=== PATIENT | male | born 1970 | race Caucasian/White ===

== ENCOUNTER 2020-07-23 12:29 | Outpatient (CLI) | payer MEDICAID, SELFPAY ==
--- NOTE | 2020-07-23 13:18 | MR_ITS ---
WS: [id number] MRI HEAD WITH CONTRAST TECHNIQUE: Sagittal T1, T2 axial, T2 axial FLAIR, axial susceptibility weighted imaging, axial diffus ion weighted images, and coronal T2 images were obtained. Pre and post-T1 axial and post T1 coronal i mages. ADC and FSPGR images. CLINICAL INFORMATION: TRANSIENT UNCONSCIOUSNESS COMPARISON: MRI 5 ,017 and 10 FINDINGS: No evidence of restricted diffusion to suggest acute ischemia. Ventricular system and basal cisterns are patent. Minimal small vessel changes. Moderate parenchymal volume loss. Chronic lacunar infarcts in the bilateral basal ganglia. Multiple chronic lacunar infarcts in the cerebellum bilaterally. [employer] eloise infarct right parasagittal occipital lobe with encephalomalacia and gliosis. Normal vascular flow voids at the skull base. No extra-axial fluid collections. No evidence of mass or mass effect. Paran miguel sinuses and mastoid air cells well aerated. No hemosiderin on susceptibly weighted images. No abnormal gadolinium enhancement. Normal optic chias m and pituitary infundibulum. Normal cavernous sinuses and Meckel's cave. Mild symmetric atrophy invo lving the temporal lobes and hippocampal formations. Mild fullness in the sella appears unchanged sin ce 2010. Recommend correlation with pituitary function studies. MR/MR head wo/w con [id number] IMPRESSION: 1. No evidence of restricted diffusion to suggest acute ischemia. 2. Mild small vessel changes with moderate parenchymal volume loss. 3. Chronic lacunar infarcts in bilateral basal ganglia and bilateral cerebellu m. 4. Chronic infarct in the right parasagittal occipital lobe with encephalomala beronica and gliosis is unchanged. 5. No abnormal intracranial enhancement. 6. Mild fullness in the sella appears stable over multiple multiple prior stud ies dating back to 2010. Recommend correlation with pituitary function studies. 7. Interval resection of the previously described left postauricular sebaceous cyst.
== END 2020-07-23 12:30 | disposition home or self-care (01) ==
LOC: RADSHAW 12:30
PROVIDERS: PCP Family Medicine; Visit Provider Family Medicine
DX: R55 Syncope and collapse (principal); I63.81 Other cerebral infarction due to occlusion or stenosis of small artery
CPT/HCPCS: 70553; A9579

== ENCOUNTER → 2020-10-21 13:47 | Outpatient (BNVA) | payer MEDICAID, SELFPAY | PROVIDERS: PCP Family Medicine; Visit Provider Specialist | DX: R56.9 Unspecified convulsions (principal); Z86.73 Personal history of transient ischemic attack (TIA), and cerebral infarction without residual deficits; F17.210 Nicotine dependence, cigarettes, uncomplicated | CPT/HCPCS: 99214; 99215 ==

== ENCOUNTER 2023-05-02 20:29 | Emergency (ER) | payer MEDICAID, SELFPAY ==
[2023-05-02 20:38] VITALS: BP 133/83; PULSE 75; RESP 14; TEMP 36.7; O2SAT 94; BMI 31.1
[2023-05-02 20:58] VITALS: BP 132/75; PULSE 64; RESP 18; O2SAT 92
[2023-05-02] MEDS: tetracaine 0.5% Op Soln 4 mL Btl 1 DROP EYE-LEFT (21:05)
[2023-05-02] MEDS: fluorescein 1 mg Strip EYE-LEFT (21:05)
--- NOTE | 2023-05-02 21:05 | ED_ITS ---
HPI - Eye Problem General: Chief complaint: Eye Problems Stated complaint: Pain In Eye Time Seen by Provider: 05/02/23 20:49 Source: patient Mode of arrival: ambulatory Limitations: no limitations History of Present Illness: 52-year-old male has had a history of stroke in the past. Has been complaining of left eye pain along with left-sided headache over the last 2 days. He denies any change in vision he does not wear contacts. Denies any known foreign bodies in the eye states that pain is a pressure type pain he rates it a 4 out of 10 denies any worsening proving factors. Associated symptoms: Reports headache(s); Denies fever(s), nausea, neck pain or vomiting Review of Systems Const: Denies: fever(s) or chills Eyes: Reports: eye discomfort; Denies: blurry vision ENMT: Denies: throat pain or dental pain Card: Denies: chest pain Resp: Denies: dyspnea GI: Denies: abdominal pain, nausea, vomiting or diarrhea Musc: Denies: neck pain or back pain Skin/Breast: Denies: rash Neuro: Reports: headache(s) PFSH ED PFSH: Medical History Arterial ischemic stroke, EMILY (anterior cerebral artery), right, chronic Hemiplegia affecting dominant side, post-stroke Multi-infarct dementia with depression Family History Mother Cancer Father Heart disease Social History Smoking and tobacco status: current every day smoker Physical Exam Const: COMMON NORMALS: no acute distress, patient oriented x3 and healthy appearing HENMT: COMMON NORMALS: normocephalic and atraumatic HEAD & SCALP: normocephalic and atraumatic Eye: COMMON NORMALS: Equal, round and reactive pupils present and EOMs intact bilaterally PUPIL: Yes Equal, round and reactive pupils present OTHER: No signs of abrasions or ulcers or foreign body under Mejía lamp exam under fluorescein his intraocular pressure is 19 Neck/C-Spine: COMMON NORMALS: full ROM and supple Chest: COMMONS NORMALS: normal inspection of the chest and normal palpation of entire chest wall Resp: COMMON NORMALS: normal respiratory effort Cardio: COMMON NORMALS: regular rate, regular rhythm and No murmurs present (Cardio) RATE: regular rate RHYTHM: regular rhythm GI: INSPECTION: Yes normal to inspection Extremity: COMMON NORMALS: normal to inspection and full ROM Neuro: COMMON NORMALS: patient oriented x3, moves all extremities and no focal motor deficits SPEECH: speech normal MOTOR EXAM: 5/5 motor strength present throughout Psych: COMMON NORMALS: mental status grossly normal, Normal thought process present and cooperative THOUGHT PROCESS: Normal thought process present Skin: COMMON NORMALS: no rashes or lesions noted and no wounds GENERAL SKIN EXAM: no rashes or lesions noted Course Vital Signs: Vital signs: Vital Signs Temperature 98.1 F 05/02/23 20:38 Pulse Rate 64 05/02/23 20:58 Respiratory Rate 18 05/02/23 20:58 Blood Pressure 132/75 05/02/23 20:58 Pulse Oximetry 92 05/02/23 20:58 Oxygen Delivery Me thod Room Air 05/02/23 20:58 MDM - Eye Problem Medical Decision Making Patient presents here with headache along with left eye pain is likely a tension headache he has no signs of a stroke. Eye exam here is benign he has no signs of abrasion or ulcer intraocular pressure is 19 he stable for discharge follow- up with PCP return if worsening. Medical Records I reviewed the patient's medical records. Lab Data I reviewed the patient's lab results. Discharge Plan Discharge Patient Disposition: Home Clinical Impression: Headache, Pain in left eye Condition: Stable Prescriptions: No Action aspirin 81 mg tablet,delayed release (DR/EC) 81 mg PO DAILY citalopram [Celexa] 10 mg tablet 10 mg PO DAILY Qty: 30 5RF Discharge Orders: Discharge ED (Routine); Ordered 05/02/23 Ordered By: Ledy Crowley Referrals: Gonzalo Mcmanus MD [Primary Care Provider] - 1-3 days Discharge Diet: Advance as tolerated Discharge Activity: Resume usual activity Patient Instructions: General Headache (ED) Coding Level of Care Code ED [employer] for [employer]o [employer]inos
[2023-05-02] MEDS: ketorolac 30 mg/mL INJ IM (21:08)
[2023-05-02] MEDS: promethazine 25 mg/mL SDV 1 mL IM (21:09)
[2023-05-02 21:31] VITALS: BP 115/72; PULSE 70; RESP 16; O2SAT 96
== END 2023-05-02 21:34 | disposition home or self-care (01) ==
PROVIDERS: Emergency Provider Emergency Medicine; PCP Family Medicine
DX: H57.12 Ocular pain, left eye (principal); R51.9 Headache, unspecified; Z79.82 Long term (current) use of aspirin; F03.90 Unspecified dementia, unspecified severity, without behavioral disturbance, psychotic disturbance, mood disturbance, and anxiety; F17.210 Nicotine dependence, cigarettes, uncomplicated
CPT/HCPCS: 96372; 99284; J1885; J2550

== ENCOUNTER 2023-06-15 09:51 | Outpatient (CLI) | payer MEDICAID, SELFPAY ==
--- NOTE | 2023-06-15 09:56 | CT_ITS ---
WS: [id number] LDCT LUNG CANCER SCREENING HISTORY: NICOTINE DEPENDENCE,CIGARETTES TECHNIQUE: Axial imaging performed from the apices to 1 cm below the costophrenic angles. Coronal and sagittal reformats are submitted with axial MIP series. All CT scans at [facility] use at least one of these dose optimization techniques: automated exposure control; mA and/or kV adjustment per patient size (includes targeted exams where dose is matched to clinical indication); or iterativ e reconstruction. DLP: 75.02 mGy.cm DIvol: Mean CTDIvol: 1.80 (mGy) COMPARISON: None available. Diagnostic quality: Satisfactory Lungs: Noncalcified 5 mm nodule superior segment RIGHT lower lobe. There is an additional perifissura l nodule at a similar location. No additional mass or nodule. No endobronchial lesions. Heart: Normal size heart with no pericardial effusion.. Other findings: Very minimal atherosclerotic plaque within the aorta. Normal sized pulmonary artery. No adenopathy. Small hiatal hernia. IMPRESSION: CT/CT lung screening [id number] LUNG-RADS: 3-Probably Benign FOLLOW UP: 6 Month LDCT OTHER FINDINGS (S MODIFIER): None.
== END 2023-06-15 09:52 | disposition home or self-care (01) ==
PROVIDERS: PCP Family Medicine; Visit Provider Family Medicine
DX: Z12.2 Encounter for screening for malignant neoplasm of respiratory organs (principal); F17.210 Nicotine dependence, cigarettes, uncomplicated
CPT/HCPCS: 71271

== ENCOUNTER 2023-12-07 12:00 | Outpatient (CLI) | payer MEDICAID, SELFPAY ==
--- NOTE | 2023-12-07 12:05 | CT_ITS ---
WS: [id number] CT chest wo con [id number] HISTORY: LUNG NODULE TECHNIQUE: Axial imaging performed through the thorax. Coronal and sagittal reformats are submitted. All CT scans at [facility] use at least one of these dose optimization techniques: automated exposure control; mA and/or kV adjustment per patient size (includes targeted exams where dose is mat ched to clinical indication); or iterative reconstruction. CONTRAST: None DLP: 473.18 mGy.cm COMPARISON: 06/15/2023 Lungs and central airway: Lung volumes are decreased and pleural inspiration. Mild crowding of the thierno ng markings would improve with better inspiration. Reidentified is the 5.4 mm noncalcified nodule sup erior segment RIGHT lower lobe. No new or additional or enlarging nodules. No pneumonia. Pleura: Normal. No pleural effusion. Heart and pericardium: Normal size heart with no pericardial effusion. Mediastinum and piyush: No mediastinum or hilar adenopathy. Vessels: Mild atherosclerosis aorta. Normal size pulmonary artery. Chest wall and lower neck: No soft tissue masses. Upper abdomen: Cholelithiasis. No adrenal mass. LEFT kidney is not identified in the LEFT renal bed. Osseous structures: No destructive process. IMPRESSION: 1. No increase in size of the 5.4 mm noncalcified pulmonary nodule superior segment RIGHT lower lobe . Stable since 06/15/2023. Recommend chest CT follow-up in 6 to 12 months. 2. Cholelithiasis. No evidence for acute cholecystitis. 3. No kidney identified in the visualized LEFT renal bed.
== END 2023-12-07 12:01 | disposition home or self-care (01) ==
LOC: RAD 12:00
PROVIDERS: PCP Family Medicine; Visit Provider Family Medicine
DX: R91.1 Solitary pulmonary nodule (principal); K80.20 Calculus of gallbladder without cholecystitis without obstruction
CPT/HCPCS: 71250

== ENCOUNTER 2024-07-25 12:08 | Outpatient (CLI) | payer MEDICAID, SELFPAY ==
--- NOTE | 2024-07-25 12:12 | CTR_ITS ---
PROCEDURE INFORMATION: Exam: CT Chest Without Contrast; Diagnostic Exam date and time: 07/25/2024 12:14 PM Age: 53 years old Clinical indication: Condition or disease; Lung condition and disease; Pulmonary nodule, solitary; Additional info: Lung nodule TECHNIQUE: Imaging protocol: Diagnostic computed tomography of the chest without contrast. Radiation optimization: All CT scans at this facility use at least one of these dose optimization techniques: automated exposure control; mA and/or kV adjustment per patient size (includes targeted exams where dose is matched to clinical indication); or iterative reconstruction. COMPARISON: CT chest con [id number] 12/07/2023 12:08 PM RADIATION DOSE METRICS: Total DLP (mGy-cm): 480.71 FINDINGS: Lungs: There is a 4 mm fissural nodule noted in the right upper lung field laterally. Mild centrilobular emphysematous change involves both upper lobes. A 3 mm pleural-based nodule is noted in the superior aspect of the left lower lobe. A 5 mm fissural nodule is noted in the superior aspect of the right lower lobe. Pleural spaces: Unremarkable. No pneumothorax. No pleural effusion. Heart: Unremarkable. No cardiomegaly. No pericardial effusion. Coronary arteries: Coronary artery calcifications are noted. Lymph nodes: Unremarkable. No enlarged lymph nodes. Vasculature: Unremarkable. No aortic aneurysm. Bones/joints: Unremarkable. No acute fracture. Soft tissues: Unremarkable. CT/CT chest con [id number] IMPRESSION: 1. Stable tiny bilateral lung nodules 2. For patients at low risk (minimal or absent history of smoking and of other known risk factors), no routine follow-up is indicated. For patients at high risk (history of smoking or of other known risk factors), consider optional CT Chest at 12 months. (Reference: Suyapa) COMMENTS: The presence of pulmonary emphysema on CT is an independent risk factor for lung cancer. In the absence of a history or active diagnosis of lung cancer, it is recommended that this patient with emphysema be evaluated for enrollment in a low dose CT lung cancer screening program. REFERENCES: Suyapa Hunt et al. Guidelines for Management of Incidental Pulmonary Nodules Detected on CT Images: From the Fleischner Society 2017. Radiology. 2017;284(1):228-243.
== END 2024-07-25 12:09 | disposition home or self-care (01) ==
LOC: RAD 12:08
PROVIDERS: PCP Family Medicine; Visit Provider Family Medicine
DX: R91.8 Other nonspecific abnormal finding of lung field (principal)
CPT/HCPCS: 71250

== ENCOUNTER 2025-04-12 07:31 | Outpatient (CLI) | payer MEDICAID, SELFPAY ==
--- NOTE | 2025-04-12 07:39 | CT_ITS ---
WS: [id number] CT chest wo con [id number] HISTORY: R PULMONARY NODULE TECHNIQUE: Axial imaging performed through the thorax. Coronal and sagittal reformats are submitted. All CT scans at [facility] use at least one of these dose optimization techniques: automated exposure control; mA and/or kV adjustment per patient size (includes targeted exams where dose is matched to clinical indication); or iterative reconstruction. CONTRAST: None DLP: 468.74 mGy.cm COMPARISON: 07/25/2024, 12/07/2023 and 06/15/2023 Lungs and central airway: Lungs are well-aerated. Mild centrilobular emphysema. Largest pulmonary nodule in the superior segment RIGHT lower lobe measures 6 mm. There is an adjacent perifissural nodule measuring 3 mm. Pleural nodule superior segment LEFT lower lobe is stable at 2 mm. No new mass or nodule. No enlarging masses. Pleura: Normal. No pleural effusion. Heart and pericardium: Normal size heart with no pericardial effusion. Mediastinum and piyush: No mediastinum or hilar adenopathy. Vessels: Mild atherosclerosis aorta. Normal size aorta. Normal size pulmonary artery. Chest wall and lower neck: Mildly enlarged LEFT thyroid extends substernal. Upper abdomen: Cholelithiasis. LEFT kidney is not identified and may be absent or surgically removed. Normal adrenal glands. Small hiatal hernia. Osseous structures: No destructive process. CT/CT chest wo con [id number] IMPRESSION: 1. No interval change in the pulmonary nodules. Largest nodule superior segmen t RIGHT lower lobe measures 6 mm. Stable since 06/15/2023. Recommend return to l ow dose lung screening CT evaluation. 2. Centrilobular emphysema. 3. Cholelithiasis.
== END 2025-04-12 07:32 | disposition home or self-care (01) ==
LOC: RAD 07:32
PROVIDERS: PCP Family Medicine; Visit Provider Family Medicine
DX: R91.8 Other nonspecific abnormal finding of lung field (principal); K80.20 Calculus of gallbladder without cholecystitis without obstruction
CPT/HCPCS: 71250